=== PATIENT | male | born 1975 | race Two or more races ===

== ENCOUNTER 2017-11-12 18:49 | Emergency (ER) | payer OTHER ==
[~2017-11-12] VITALS: Ht 167.6 cm; Wt 86.2 kg
[2017-11-12] MEDS ORDERED: UNOBMED (18:54)
[2017-11-12] MEDS ORDERED: Sodium Chloride 500ML 500 ML IV ONE (19:18)
[2017-11-12] MEDS ORDERED: Morphine Sulfate 4mg/ml Inj IVP ONE (19:30)
[2017-11-12 20:49] VITALS: BP 136/72
[2017-11-12 21:06] LABS: BASOPHILS % (AUTO) 1.5 % (0.0-2.0); HEMATOCRIT 34.1 % (42.0-52.0); HEMOGLOBIN 10.5 G/DL (14.2-18.0); LYMPHOCYTES % (AUTO) 20.2 % (20.0-45.0); MEAN CORPUSCULAR VOLUME 77 FL (80-99); MONOCYTES % (AUTO) 6.6 % (1.0-10.0); NEUTROPHILS % (AUTO) 70.8 % (45.0-75.0); PLATELET COUNT 245 K/UL (150-450); RED BLOOD COUNT 4.45 M/UL (4.70-6.10); WHITE BLOOD COUNT 5.3 K/UL (4.8-10.8)
[2017-11-12 21:18] LABS: ANION GAP 7 mmol/L (5-15); BLOOD UREA NITROGEN 9 mg/dL (7-18); CALCIUM 8.9 MG/DL (8.5-10.1); CARBON DIOXIDE 26 MMOL/L (21-32); CHLORIDE 102 MMOL/L (98-107); CREATININE 1.1 MG/DL (0.55-1.30); POTASSIUM 5.1 MMOL/L (3.5-5.1); SODIUM 135 MMOL/L (136-145)
[2017-11-12 21:22] LABS: ALANINE AMINOTRANSFERASE 34 U/L (12-78); ALBUMIN 2.8 G/DL (3.4-5.0); ALBUMIN/GLOBULIN RATIO 0.5 (1.0-2.7); ALKALINE PHOSPHATASE 215 U/L (46-116); ASPARTATE AMINO TRANSFERASE 29 U/L (15-37); BILIRUBIN,TOTAL 0.5 MG/DL (0.2-1.0)
[2017-11-12 22:13] VITALS: BP 139/87
[2017-11-12 23:45] VITALS: BP 136/85
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
== END 2017-11-12 23:50 | disposition home or self-care (01) ==
LOC: EDBD 18:49 → EMR 20:28
DX: E11.65 Type 2 diabetes mellitus with hyperglycemia (principal); R10.9 Unspecified abdominal pain; Z93.3 Colostomy status; R16.1 Splenomegaly, not elsewhere classified; K80.20 Calculus of gallbladder without cholecystitis without obstruction; L89.154 Pressure ulcer of sacral region, stage 4; I10 Essential (primary) hypertension
CPT/HCPCS: 36415; 74176; 80053; 82962; 83690; 85025; 96372; 99284; J1815